=== PATIENT | female | born 1985 | race Two or more races ===

== ENCOUNTER 2017-06-01 09:09 | Outpatient (CLI) | payer OTHER ==
[2017-06-01] MEDS ORDERED: ALBUTEROL NEB 2.5 MG/3 ML INH ONE (10:00)
== END 2017-06-01 09:10 | disposition home or self-care (01) ==
LOC: RT 09:09
PROVIDERS: ATTEND Family Medicine
DX: R06.00 Dyspnea, unspecified (principal); M54.6 Pain in thoracic spine
CPT/HCPCS: 94060; J7613